=== PATIENT | female | born 1990 | race Asian ===

== ENCOUNTER 2021-03-05 04:22 | Outpatient (CLI) | payer OTHER, SELFPAY ==
--- NOTE | 2021-03-05 | DI.MAMMO_ITS ---
Exam(s) US BREAST RT LIMITED MG MAMMO DIAGNOSTIC BI EXAM: MG MAMMO DIAGNOSTIC BI CLINICAL HISTORY: 0.55 X05 CM ROUND FIRM SMOOTH MOBILE MASS IN RT AT 1:00 8 CM FROM AREOLAR. COMPARISON: US US BREAST RT LIMITED from 03/05/2021 [id number] TECHNIQUE: Craniocaudal and mediolateral oblique Full Field Digital Mammography views of both breast s with Computer Aided Diagnosis followed by Tomosynthesis and right breast ultrasound. FINDINGS: Mammography/Tomosynthesis: Masses/Architectural Distortion: None seen. Microcalcifications: No suspicious pleomorphic-type are seen. Skin Thickening/Nipple Retraction: None. Breast US: Echotexture: Normal appearance of the glandular tissue. Shadowing: No suspicious foci. Solid lesions: 6 x 4 x 5 millimeter circumscribed hypoechoic lesion 1 o'clock position 8 cm from the nipple. There is increased through transmission. This could represent a proteinaceous cyst versus s mall fibroadenoma. There is a nearby 4 x 2 x 4 millimeter similar appearing lesion. Ductal dilation: None. IMPRESSION: 1. No evidence of malignancy is noted. 2. Unless there is more urgent need, follow-up screening mammography is recommended, as per [employer] guidelines. BI-RADS Category 2 - Benign Findings Breast Density - Category D - Extremely dense Breast density category C or D implies that the patient has dense breast tissue. Dense breast tissue is very common and is not abnormal but dense breast tissue can make it harder to find cancer on a ma mmogram. Also, dense breast tissue may increase their breast cancer risk. This information about the result of the mammogram report was provided to the patient to raise their awareness. Use this report when you speak with the patient about their risks for breast cancer, which includes their family hist ory. At that time, you may recommend for more screening tests (Ultrasound or MRI) as they might be us eful based on their risk. A negative radiographic report should not delay biopsy if a dominant or clinically suspicious mass is present. Up to ten percent of cancers are not identified on mammography. A negative report may reinforce clinical impression. Adenosis and dense breasts may obscure an underlying neoplasm. False positive reports average 6 to 10%. Patient will receive a letter notifying them of these results.
== END 2021-03-05 04:42 ==
PROVIDERS: PCP Family Medicine; Visit Provider Nurse Practitioner
DX: N63.12 Unspecified lump in the right breast, upper inner quadrant (principal)
CPT/HCPCS: 76642; 77062; 77066; G0279